=== PATIENT | male | born 1990 | race Caucasian/White ===

== ENCOUNTER 2016-07-10 19:37 | Inpatient (IN) | payer OTHER ==
[~2016-07-10] VITALS: Ht 182.9 cm; Wt 72.8 kg
[2016-07-10 19:50] VITALS: BP 154/86
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
[2016-07-10 21:35] VITALS: BP 154/86
[2016-07-10] MEDS ORDERED: ZOFRAN ODT4 M1 PO (22:21)
[2016-07-10] MEDS ORDERED: METHOCARBAMOL500 M1 PO (22:23)
[2016-07-10] MEDS ORDERED: ATIVAN1 M1 PO (22:24)
[2016-07-10] MEDS ORDERED: LORAZEPAM1 M1 PO (22:25)
[2016-07-10] MEDS ORDERED: IBUPROFEN600 M1 PO (22:26)
[2016-07-10] MEDS ORDERED: SLEEP AID50 MG PO (22:27)
[2016-07-10] MEDS ORDERED: OXYCODONE-ACET1 EACH PO (22:37)
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
[2016-07-10 23:56] VITALS: BP 127/73
--- NOTE | 2016-07-11 05:12 | Admission Certification ---
Admission Certification Certification Statement - As attending physician, I certify that at the time of - admission, based on clinical presentation, severity of - symptoms, need for further diagnostic testing and - therapeutic interventions, and risk of adverse outcomes - without in-hospital treatment, in my clinical assessment, - this patient requires an acute hospital stay for a minimum - of two nights or longer. I have also considered psychsocial - factors such as support system, advanced age, financial - issues, cognitive issues, and failed out-patient treatments, - past re-admission history, safety of patient, and lack of - compliance as applicable. Specific rationale supporting this admission is: Depression and suicidal ideation
--- NOTE | 2016-07-11 06:42 | NUR ---
DIANEYLS SLEPT AROUND 3 HOURS TOTAL DURING THE NIGHT, IN STAGES; HE WAS GIVEN 2MG ATIVAN ONE TIME PER DR. HUMHPREYS ALONG WITH HIS SCHEDULED HS MEDICATIONS AND PRN BENADRYL; POOR EFFECTIVENESS; HE LAY AWAKE IN BED READING A GREAT DEAL; CALM, COOPERATIVE WITH STAFF.
[2016-07-11 08:19] VITALS: BP 129/72
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
[2016-07-11 12:23] VITALS: BP 140/77
[2016-07-11 15:54] VITALS: BP 141/76
--- NOTE | 2016-07-11 16:14 | SOCIAL WORKER PROG NOTE PSYCH ---
Social Work Progress Note Progress Note Patient had family meeting today with this sign writer hand, Sharon Saira LEIJAN, his mother, father, sister and brother. Patients mother and sister were the only ones who shared openly during the meeting. Patients sister sufferred a stroke and has limited ability with communication skills. Patients mother shared a lengthy history of medication trials. Patient has tried multiple medications and has had negative experiences on most. Patient is very resistent to medication and mother is resistent to most medications as well. Patients father is diagnosed bipolar and on Zyprexa and Gonzalez currently. Patients mother is adamant that she does not want patient on either medication. Patients mother shared that patients PCP also disagrees with lithium trial and wanted his Ativan increased. Sharon expressed our concerns for increasing Ativan due to the depressing effect it has on central nervous system. Patient expressed his desire to be discharged soon from the hospital and mentioned briefly signing paperwork for discharge. Patient then refused to have his parents come back in for visiting. We shared that patient is open to signing paperwork for discharge if he would like to but also explained briefly the process that he would have to go through with sail finisher machine. I left voicemail for his therapist Sheree Wright ext [phone]) who patient has been working with for 12 years.
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
--- NOTE | 2016-07-11 16:43 | IP INCIDENTAL NOTE PSYCH ---
Incidental Note Notation: Labs from [facility] on 07/10/16 at 01:55: WBC 5.4 RBC 4.63 Hgb 14.0 Hct 42.7 MCV 92.2 MCH 30.2 MCHC 32.8 RDW 40.4 Plt 254 MPV 10.9 Neut % (auto) 57.5 Lymph % (auto) 31.9 Otero % (auto) 7.0 Eos % (auto) 3.0 Baso % (auto) 0.6 Sodium 145 Potassium 3.4 Chloride 106 Carbon Dioxide 24.0 Anion Gap 15 BUN 6.0 Creatinine 0.7 Estimated GFR > 60 Random Glucose 98 Calculated Osmolality 304.3 Calcium 8.8 Urine Opiates NEG Urin Barbiturates NEG Urine Phencyclidine NEG Urine Amphetamines NEG Urine Benzodiazepines NEG Urine Cocaine Metabolite NEG Ethyl Alcohol 156
--- NOTE | 2016-07-11 16:56 | IP INCIDENTAL NOTE PSYCH ---
Incidental Note Notation: SOLOMON obtained to speak with patient's PCP (Dr. Carrasco), his outpatient prescriber, for collateral information. Message was left with Dr. Carrasco's front office associate (#[phone]), requesting a return call. Patient refused to sign SOLOMON for [facility].
--- NOTE | 2016-07-11 18:07 | IP INCIDENTAL NOTE PSYCH ---
Incidental Note Notation: A family meeting was held with the patient, his mother and father, sister and brother. The patient's reason for admission, level of safety, treatment progress , and medication recommendations were reviewed and discussed. Patient's mother, and his sister who suffered a stroke, were the only two who shared during family meeting. The patient and patient's mother expressed the patient's previous failed trials on the following medications: Lexapro ("didn't work") Depakote ("became violent/agressive on it") Risperdal ("became agressive/depressed on it") Abilify ("heard voices on it") Zoloft ("was on it for 8 years, and did nothing") Prozac ("became violent/agressive on it") Zyprexa ("became agressive on it") Seroquel ("became violent/depressed on it") Lunesta (for sleep - "made me feel funny, didn't work") Reviewed this technical document writer's recommendation for patient to trial Mascotte, given that current hospitalization resulted in the patient's 5th suicide attempt s/p hanging self, and Masc[place]'s anti-suicidal properties, and efficacy on treating depression and mood stabilization. The patient's mother was strongly against this recommendation, as was the patient, given the patient's father who has a long history of being on medication (and currently still is), and has experienced many SEs on medication. The patient's father did not discuss his history of mental illness, nor did the patient's mother delve into this history, except that he is diagnosed with Bipolar disorder. The patient's father is additionally taking Zyprexa, and the patient's mother and patient were against the patient retrialing this medication as the patient had failed this trial in the past. 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 The patient appeared to exhibit limited insight into most recent suicide attempt resulting in this hopsitalization and necessity to stabilize psychiatric symptoms. Swapna Manuel LCSW and this technical document writer reviewed concerns surrounding present hospitalization, and patient's resistance to trialing psychotropic medications for mood stabilization. 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 Per patient's mother, she spoke with patient's PCP Dr. Carrasco prior to family meeting who expressed (per the patient's mother) that the patient has done well on Ativan 2mg at HS, and believes that his depression would improve if Ativan was increased. 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 Additionally reviewed the patient's concomittant use of alcohol and benzodiazepines and the risks of physical and mental effects. The patient is unwilling to discontinue Ativan 2mg at HS. This technical document writer attempted to call Dr. Carrasco (PCP) and was unsuccessful. A message was left with the air defense artillery officer of Dr. Carrasco, to return call for further collateral on the patient. The patient refused to sign SOLOMON for this technical document writer to obtain prior health records from [facility]. During the conclusion of family meeting, the patient continued to refused psychotropic medication trials, and expressed that he felt his family sided with treatment team. He refused his family from further visitation while he is hospitalized. Probable cause form was reviewed with the patient, given he is currently maintained on PEC. He was offered to sign form, and chose not to at that time. He was informed that if he should change his mind, to notify nursing to sign paperwork.
[2016-07-11 19:54] VITALS: BP 136/79
--- NOTE | 2016-07-11 21:22 | NUR ---
PT HAS BEEN COMPLIANT WITH UNIT RULES, COOPERATIVE WITH THE MOST PART WITH STAFF AND PEERS, AND RELATIVELY CALM. PT HAD ONE INCIDENT WITH STAFF WHEN ASKED TO LEAVE DOOR OPEN AT NIGHT TO REMAIN VISIBLE FOR HIS SAFETY, AND VOICED HOW HE DID NOT WANT THIS TO OCCUR, BUT WAS SUBSEQUENTLY RE-DRECTED FROM THIS BEHAVIOR. PT MOOD IS STABLE, AFFECT IS CONSTRICTED AT TIMES, AND OVERALL SLIGHTLY EUTHYMIC, THOUGH HAS ABILITY TO EXPRESS FULL RANGE. PT IS SOCIAL, THOUGH SEEMS ANXIOUS WHEN AROUND OTHERS AND IN CONVERSTAION. PT APPETITE NORMAL AND COMMUNICATION NORMAL. PRT HAS NO MAJOR COMPLAINTS AT THIS TIME AND DENIES SI.
--- NOTE | 2016-07-11 23:08 | NUR ---
Patient approach nurses station and expected to confirm medication dosing for the night and reported that staff needed to call the online content editor doctor if the order was incorrect for night time Ativan of 2mg. This nurse reported the dosing of 1 mg and and the patient reports "that is not what was discussed today." The patient's mother called and was very upset with this nurse and staff for not giving her son the correct amount of Ativan. I explained the dosing and alteration made to help the patient sleep, to the mother and she was unhappy still. The patient's mother requested the number to the patient advocate and extension to the "lowly" LEGAL ENTITY CONTROLLER, and used profanity toward staff and care being provided. Patient is also upset with sitter rules and unhappy with all limits set. Mother demanded that "retribution" not be taken out on her son. This nurse assured the mother exceptional care will continue to be provided to her son and all patients under our professional care. Patient mother was given patient advocate phone number as requested.
--- NOTE | 2016-07-12 04:27 | NUR ---
PT SLEPT WELL, NO ISSUES. 1:1 SITTER MAINTAINED THROUGHOUT THE NIGHT FOR SAFETY.
[2016-07-12 08:17] VITALS: BP 108/66
[2016-07-12 12:08] VITALS: BP 134/79
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
--- NOTE | 2016-07-12 13:30 | NUR ---
PT IS COMPLIANT AND COOPERATIVE. MOOD IS STABLE WITH A FLAT AFFECT. PT DENIES SI AT THIS TIME, NO COMPLAINTS OFFERED. PT IS ISOLATIVE AND WITHDRAWN IN ROOM, SLEEPING MOST OF DAY. PT HAS MINIMAL INTERACTION WITH OTHERS. PT PRESENT ON UNIT FOR VITALS- HAS REFUSED MEALS AT THIS POINT. VITALS ARE STABLE.
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
[2016-07-12 15:56] VITALS: BP 131/78
[2016-07-12 17:51] VITALS: BP 142/79
[2016-07-12 20:02] VITALS: BP 152/76
[2016-07-12 20:05] VITALS: BP 152/76
--- NOTE | 2016-07-12 21:50 | NUR ---
PT IS VISIBLE ON UNIT, VISITING WITH MOTHER AND SISTER. BESIDES HIS VISITORS, PT DOES NOT INTERACT MUCH WITH PEERS OR STAFF. PT DID ATTEND WRAP UP MEETING AND PARTICIPATED. COOPERATIVE AND COMPLAINT WITH STAFF. NO COMPLAINTS OR SI REPORTED. PT HAS A STABLE MOOD AND EUTHYMIC AFFECT.
[2016-07-13] VITALS (8 sets, daily range): BP systolic 102–131; BP diastolic 65–68
--- NOTE | 2016-07-13 11:16 | NUR ---
PT STATED HE FELT A LITTLE TIRED TODAY BUT NO SUICIDAL THOUGHTS OR THOUGHTS OF SELF HARM. HE IS COOPERATIVE WITH STAFF AND UNIT ROUTINE. HIS AFFECT IS FULL RANGE AND BEHAVIOR IS APPROPRIATE AND CALM
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
--- NOTE | 2016-07-13 17:50 | NUR ---
PT IS COMPLIANT AND COOPERATIVE. MOOD IS STABL WITH A CONSTRICTED AFFECT. PT DENIES SI AT THIS TIME, NO COMPLAINTS OFFERED. PT TENDS TO BE ISOLATIVE AND WITHDRAWN IN BED. PT INTERACTING WITH PEERS AND STAFF WHEN PRESENT IN COMMUNITY. NO S/S OF DETOX NOTED OR REPORTED, NO SCORING ON CIWA. VITALS ARE STABLE, APPETITE IS GOOD.
[2016-07-14] VITALS (8 sets, daily range): BP systolic 113–144; BP diastolic 60–76
--- NOTE | 2016-07-14 06:34 | NUR ---
PATIENT SLEPT ALL NIGHT, BUT DID APPEAR AWAKE IN BED A COUPLE OF TIMES; NO ISSUES OR CONCERNS.
--- NOTE | 2016-07-14 10:48 | CP SOUTH PROGRESS NOTE PSYCH ---
Psych (Inpt) Progress Note Progress Note Include the following elements, when applicable: Involvement in the active treatment of the patient with behavioral observations of the patient and the patient's response to the treatment. Review of the ongoing treatment process in the context of the treatment plan. Indication of how multi-disciplinary staff members are carrying out the treatment plan. Plans for future interventions and recommendations for revision of the treatment plan. Liaison with other physicians/providers. Progress Note: Less drowsy today; stated that he has been reading, able to focus on reading; stated that since the concussion he has been sleeping more than usual; but otherwise no complaints. Going to group this morning. Looking forward to recording to music, going back to work, and to feeling more like himself and more clear in the next few days. No other issues. MSE: young man, well related, well groomed. No psychomotor agitation or slowing noted. Eye contact is adequte. No movement d/o noted. Speech wnl. Mood euthymic and affect is full, smiling appropriately. Thought process linear. No noted thought content abnormalities. No evidence SI/HI. Not internally preoccupied and no evidence hallucinations. Insight fair, judgment adequate. A: 25 y.o man s/p suicide attempt by hanging. Mood improving; future oriented and has goals for after discharge. Risk of harm to self improving as clinical improvement continues; target dynamic risk factor of depression and etoh use with medication, education, family support, groups. Plan: Continue current plan of care. Does not appear sedated w/ remeron today.
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
--- NOTE | 2016-07-14 20:47 | NUR ---
Pt is bed during change of shift affect is constricted and little isolative. Pt came for 1999 vital signs, pt vital signs are stable c/o no pain. Pt appetite is good. Will continue to monitor the pt overnight.
--- NOTE | 2016-07-14 21:47 | NUR ---
PT REQUESTED TO TAKE 2100 ATIVAN AT LATER TIME.
[2016-07-15] VITALS (8 sets, daily range): BP systolic 107–145; BP diastolic 55–80
--- NOTE | 2016-07-15 12:13 | CP SOUTH PROGRESS NOTE PSYCH ---
Psych (Inpt) Progress Note Progress Note Include the following elements, when applicable: Involvement in the active treatment of the patient with behavioral observations of the patient and the patient's response to the treatment. Review of the ongoing treatment process in the context of the treatment plan. Indication of how multi-disciplinary staff members are carrying out the treatment plan. Plans for future interventions and recommendations for revision of the treatment plan. Liaison with other physicians/providers. Progress Note: [I discussed this patient's progress to date, current mental status, treatment process in the context of the treatment plan, and discharge planning with staff/ team in the daily morning inpatient team meeting. I also met with the patient myself in individual session.] SUBJECTIVE: "My moods fluctuate." OBJECTIVE: Current Medications Sig/Agusto Start time Last Medication Dose Route Stop Time Status Admin Carbamazepine 200 MG 0800 07/16 0800 AC PO Carbamazepine 200 MG 07/15 2200 AC PO Carbamazepine 200 MG ONCE ONE 07/15 1245 DC 07/15 PO 07/15 1246 1434 Diphenhydramine HCl 50 MG .STK-MED ONE 07/14 2153 DC PO 07/14 2154 Diphenhydramine HCl 50 MG Q6-PRN PRN 07/12 1500 AC 07/14 PO 2158 Gabapentin 300 MG TID 07/10 2301 AC 07/15 PO 0859 Ibuprofen 400 MG 4 TIMES/DAY PRN 07/15 1236 AC PO Ibuprofen 400 MG 4 TIMES/DAY 07/11 1000 DC 07/15 PO 0859 Lorazepam 0.25 MG 0800,1400 07/15 0800 DC 07/15 PO 07/15 1401 1436 Lorazepam 1 MG 2100 07/12 2100 AC 07/14 PO 2156 Lorazepam 2 MG Q2 HRS NEEDED PRN 07/12 1700 AC PO Lorazepam 1 MG Q2 HRS NEEDED PRN 07/12 1700 AC PO Methocarbamol 500 MG BID 07/10 2251 AC 07/15 PO 0859 Mirtazapine 7.5 MG 07/12 2200 AC 07/14 PO 2156 Promethazine HCl 25 MG Q4P PRN 07/10 2300 DC PO 07/17 2259 Vital Signs Date Time Temp Pulse Resp B/P Pulse O2 O2 Flow FiO2 Ox Delivery Rate 07/15 0753 97.8 62 107/55 07/15 0744 97.8 62 107/55 07/14 1950 97.5 84 137/73 07/14 1946 97.5 84 137/73 07/14 1606 92 144/76 07/14 1558 92 144/76 07/14 1218 80 139/74 ASSESSMENT: Chart reviewed. Patient signed 3-day paper today. Met with the patient today, who was A&Ox4. Speech was slightly pressured at times. Affect full-range. Mood euthymic. Eye contact was appropriate. Behavior was calm and cooperative. He reported having "good" visits with his fater, mother and sister over the weekend. He reported the intensity of his depression fluctuates and varies. He would not elaborate on this. He denied feeling hopeless, helpless, and worthless. He reported anxiety of 0/10 (10 being the worst). He denied active and passive suicidal ideation, plans and intent. He denied homicidal ideation. There was no evidence of psychotic process, delusions or paranoia. He denied AH and VH. Thought process was organized and linear. Thought content was appropriate. Reviewed at length the risk/benefit/SE profiles of Tegretol, including unusual bleeding/bruising, agranulocytosis, aplastic anemia, rash/SJS, and sedation. Reviewed with the patient that Tegretol requires necessary serum blood monitoring. Patient was agreeable to serum blood monitoring and verbalized understanding of education, and agreeble to trial for mood stabilization. PLAN: 1. Start Tegretol 200mg BID for mood stabilization. CBZ level scheduled on at 0600. 2. Continue current medication regimen. 3. Monitor the patient on unit for mood, suicidal ideation, and safety. 4. Dispo planning per primary team.
--- NOTE | 2016-07-15 13:30 | NUR ---
PT IS COMPLIANT AND COOPERATIVE. PT IS OUT IN COMMUNITY INTERACTING WELL WITH STAFF AND PEERS. PT IS ACTIVE IN GROUPS. PT MOOD IS STABLE WITH A FULL RANGE AFFECT. PT IS LOOKING FORWARD TO PLAYING HIS MUSIC LATER. PT DENIES SI
--- NOTE | 2016-07-15 13:54 | SOCIAL WORKER PROG NOTE PSYCH ---
Social Work Progress Note Progress Note Patient presented with brighter mood today and affect was congruent with mood. Patient reported having a good weekend. He reported having visitors throughout the weekend, playing music, reading a book and engaging with his peers. Patient did put in a 3 day paper today and reported that he needs to leave by Friday due to work obligations. Patient has been more open to med changes and agreed to start a mood stabilizer today. I have left 2 voicemails now for patients outpatient therapist, Sheree Wright, and waiting for call back to discuss discharge planning. Patient denies SI/HI/AH/VH at present and is forward thinking talking about upcoming shows that he is looking forward to.
--- NOTE | 2016-07-15 22:14 | NUR ---
PT IS VISIBLE ON UNIT BUT HAS MINIMAL INTERACTION WITH PEERS AND STAFF. PT MOSTLY STAYS TO HIMSELF. FAMILY GAME TO VISIT THROUGHOUT THE EVENING. ATTENDED WRAP UP MEETING AND PARTICIPATED. NO COMPLAINTS OR SI REPORTED. PT HAS A STABLE MOOD AND FULL RANGE AFFECT.
[2016-07-16] VITALS (7 sets, daily range): BP systolic 116–142; BP diastolic 66–79
--- NOTE | 2016-07-16 10:51 | CP SOUTH PROGRESS NOTE PSYCH ---
Psych (Inpt) Progress Note Progress Note Include the following elements, when applicable: Involvement in the active treatment of the patient with behavioral observations of the patient and the patient's response to the treatment. Review of the ongoing treatment process in the context of the treatment plan. Indication of how multi-disciplinary staff members are carrying out the treatment plan. Plans for future interventions and recommendations for revision of the treatment plan. Liaison with other physicians/providers. Progress Note: [I discussed this patient's progress to date, current mental status, treatment process in the context of the treatment plan, and discharge planning with staff/ team in the daily morning inpatient team meeting. I also met with the patient myself in individual session.] SUBJECTIVE: "I'm ok, just a little tired." OBJECTIVE: Current Medications Sig/Agusto Start time Last Medication Dose Route Stop Time Status Admin Carbamazepine 200 MG 0800 07/16 0800 AC 07/16 PO 0955 Carbamazepine 200 MG 22007/15 2200 AC 07/15 PO 2150 Diphenhydramine HCl 50 MG .STK-MED ONE 07/15 214 DC PO 07/15 2147 Diphenhydramine HCl 50 MG Q6-PRN PRN 07/12 1500 AC 07/15 PO 2151 Gabapentin 300 MG TIDPRN PRN 07/16 1424 AC PO Gabapentin 300 MG TID 07/10 2301 DC 07/16 PO 0955 Ibuprofen 400 MG 4 TIMES/DAY PRN 07/15 1236 AC 07/16 PO 1552 Lorazepam 1 MG .STK-MED ONE 07/15 2145 DC PO 07/15 214 Lorazepam 1 MG 2100 07/12 2100 AC 07/15 PO 2150 Lorazepam 2 MG Q2 HRS NEEDED PRN 07/12 1700 AC PO Lorazepam 1 MG Q2 HRS NEEDED PRN 07/12 1700 AC PO Methocarbamol 500 MG BID 07/10 2251 AC 07/16 PO 0955 Mirtazapine 7.5 MG 22007/12 2200 AC 07/15 PO 2150 Vital Signs Date Time Temp Pulse Resp B/P Pulse O2 O2 Flow FiO2 Ox Delivery Rate 07/16 1223 88 142/66 07/16 1210 88 142/66 07/16 0740 97.3 77 116/70 07/16 0740 97.3 77 116/70 07/15 1953 97.4 92 145/80 07/15 1950 97.4 92 145/80 07/15 1556 80 140/73 07/15 1549 80 140/73 ASSESSMENT: Met with patient today, who was observed resting in bed and reading. Speech was normal in rate, tone and volume. Presented A&Ox4. He reported feeling tired today, and attributed this to new trial of Tegretol. Reviewed that this can be a temporary SE of medication. He reported attending some groups today. Reported appetite was good, and sleep was fair overall, with some difficulty initially falling asleep. Reported staying asleep. He reported mood as "ok, just a little tired." He denied feeling hopeless, helpless, and worthless. Affect was full- range, non-labile. Thought process was linear and organized. Thought content was appropriate. He denied passive and active suicidal ideation, plans and intent. He denied homicidal ideation. There was no evidence of underlying psychotic process, paranoia or delusions. He denied AH and VH. Patient reported tolerating medications well overall and denied acute untoward effects. Will continue to monitor patient's response to Tegretol, if daytime tiredness continues, will consider decreasing AM dose of Tegretol from 200mg to 100mg. Discussed with patient and recommended reducing HS Ativan dose from 1mg to 0.5mg. Patient refused recommendation, and expressed concern that if Ativan is decreased that he will not be able to sleep. Will continue to monitor patient 's sleep pattern, and revisit recommendation tomorrow. Reviewed with patient discharge recommendation to f/u with IOP for continued management of psychiatric symptoms and medications post-discharge. Patient refused IOP recommendation and expressed limited insight as to the need for IOP level of care following discharge. Family meeting with patient's mother is scheduled for tomorrow at 1PM to discuss discharge planning and IOP recommendation. PLAN: 1. Continue monitoring the patient on unit for safety, suicidal ideation and mood. 2. Continue current medications. 3. Family meeting scheduled for tomorrow at 1PM with patient's mother. 4. Dispo planning per primary team. PLAN: 1. Continue monitoring the patient on unit for safety, suicidal ideation and mood. 2. Continue current medications. 3. Family meeting scheduled for tomorrow at 1PM with patient's mother. 4. Dispo planning per primary team.
--- NOTE | 2016-07-16 13:26 | NUR ---
PT IS OUT IN COMMUNITY INTERACTING WELL WITH STAFF AND PEERS. PT MOOD IS STABLE WITH A FULL RANGE AFFECT. PT IT ATTEND GROUPS. PT IS SOICAL WITH OTHER PEERS AND WITH STAFF. PT IS COMPLIANT AND COOERPATIVE. PT DENIES SI THOUGHTS
--- NOTE | 2016-07-16 13:54 | NUR ---
is going to groups and interacts minimally with peers and staff. mood is stable full range of affect. denied thoughts of self harm when asked.
--- NOTE | 2016-07-16 15:36 | SOCIAL WORKER PROG NOTE PSYCH ---
Social Work Progress Note Progress Note Met with patient this afternoon who reported feeling somewhat tired from new medication and feeling "off and on" depressed. Patient denied any active SI and was asking about discharge. Patient continues to be resistent to IOP recommendation and expresses concern about returning to work and finances. Patient expressed some concerns regarding new mood stabalizer he was started on and had many questions regarding the benfit of this type of medication. Together we discussed what type of symptoms the mood stabalizer would target such as, racing thoughts, impulsivity and the highs and lows he was previously experiencing. 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 Together we discussed the consequences that can occur if he is to continue to experience these mood fluctuations and the risk outweighs the benefits. Patient understood. I have made calls today to his OP therapist Sheree Wright and Kelle Canchola. Both clinicians are in support of IOP and Kelle is planning to speak to patients mother this evening to advocate for IOP for patient. Sharon and I are planning to meet with patients mother tomorrow @ 1pm to start discharge process.
--- NOTE | 2016-07-16 22:17 | NUR ---
PT IS STABLE WITH FULL RANGE OF AFFECT. PRESENT WITHIN THE COMMUNITY AND INTERACTING WITH PEERS/STAFF. 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 PT IS HYPERVERBAL AT THE MOMENT AND WAS ENJOYING A CONVERSATION ABOUT MUSIC WITH AN RN. PT ATTENDED WRAP UP AND VS ARE STABLE. DENIES ANY SI/HI TO THIS MHW.
[2016-07-17 08:09] VITALS: BP 117/68
[2016-07-17 08:11] VITALS: BP 117/68
[2016-07-17 12:28] VITALS: BP 138/75
--- NOTE | 2016-07-17 14:13 | NUR ---
Pt reported feeling groggy this morning when woken up for vitals. He got up for vitals but did not attend breakfast, or both planning meeting, focus group. he had a family meeting which appeared to have gone okay. Pt currently is attending afternoon group, and had lunch with his peers. pt denies thoughts of hurting himself, and thoughts of suicide.
--- NOTE | 2016-07-17 14:18 | CP SOUTH PROGRESS NOTE PSYCH ---
Psych (Inpt) Progress Note Progress Note Include the following elements, when applicable: Involvement in the active treatment of the patient with behavioral observations of the patient and the patient's response to the treatment. Review of the ongoing treatment process in the context of the treatment plan. Indication of how multi-disciplinary staff members are carrying out the treatment plan. Plans for future interventions and recommendations for revision of the treatment plan. Liaison with other physicians/providers. Progress Note: [I discussed this patient's progress to date, current mental status, treatment process in the context of the treatment plan, and discharge planning with staff/ team in the daily morning inpatient team meeting. I also met with the patient myself in individual session with Swapna Manuel. [facility].] SUBJECTIVE: "I'm okay, still getting use to the new med. Just tired." OBJECTIVE: Current Medications Sig/Agusto Start time Last Medication Dose Route Stop Time Status Admin Carbamazepine 100 MG 0800 07/18 0800 AC PO Carbamazepine 200 MG 0800 07/16 0800 DC 07/17 PO 1214 Carbamazepine 200 MG 07/15 220 AC 07/16 PO 2144 Diphenhydramine HCl 50 MG .STK-MED ONE 07/16 2141 DC PO 07/16 2142 Diphenhydramine HCl 50 MG Q6-PRN PRN 07/12 1500 AC 07/16 PO 2146 Gabapentin 300 MG TIDPRN PRN 07/16 1424 AC PO Gabapentin 300 MG TID 07/10 2301 DC 07/16 PO 0955 Ibuprofen 400 MG 4 TIMES/DAY PRN 07/15 1236 AC 07/16 PO 1552 Lorazepam 1 MG 2100 07/12 2100 AC 07/16 PO 2145 Lorazepam 2 MG Q2 HRS NEEDED PRN 07/12 1700 DC PO Lorazepam 1 MG Q2 HRS NEEDED PRN 07/12 1700 DC PO Methocarbamol 500 MG BID 07/10 2251 AC 07/17 PO 1214 Mirtazapine 7.5 MG 2200 07/12 220 AC 07/16 PO 2144 Vital Signs Date Time Temp Pulse Resp B/P Pulse O2 O2 Flow FiO2 Ox Delivery Rate 07/17 1228 91 138/75 07/17 0811 96.1 75 117/68 07/17 0809 96.1 75 117/68 07/16 1941 97.0 96 136/69 07/16 1938 97.0 96 136/69 07/16 1630 85 135/79 07/16 1605 85 135/79 ASSESSMENT: Met with the patient today, together with Swapna Manuel LCSW, and the patient's mother for a 2nd family meeting. On encounter, patient reported continued daytime tiredness on Tegretol. He reported his sleep was improved. Speech was normal in rate, tone and volume. Eye contact was appropriate. Affect was full-range. Mood was "okay." Denied depression and anxiety. Denied racing thoughts. Reported apettite was good. Denied active and suicidal ideation, plans and intent. Denied feeling hopeless, helpless, guilty, and worthless. He denied homicidal ideation. 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 Thought content was appropriate. There was no evidence of psychosis, delusions, paranoia. He denied AH and VH. He reported tolerating medications well overall, but reported continued day time tiredness on Tegretol 200mg QAM. Reviewed with patient Tegretol 200mg can be decreased to 100mg QAM, and could be managed by outpatient prescriber post- discharge from [facility]. He denied acute untoward medication effects, and was agreeable to continue taking them. There was no evidence of rash/SJS. During family meeting with the patient, his mother, and Swapna Manuel LCSW, the patient's mother appeared upset that patient's Ativan was reduced to 1mg at HS, which the patient had agreed to. She reported the patient would not be able to sleep once discharged from hospital on 1mg Ativan at HS. This staff writer asked the patient how he felt his sleep pattern was since reducing HS Ativan from 2mg to 1mg at HS, and tapering off of Ativan 1mg BID. Patient reported sleeping "good. " Patient's mother remained skeptical when patient replied this. She additionally expressed concern regarding the patient's day time energy level on Tegretol 200mg BID. She reported she did not like seeing the patient appear tired. Patient was A&Ox4, and reported some day time tiredness on 200mg Tegretol QAM. On the unit, the patient's level of functioning did not seem impaired as evidenced by postive group attendance/participation, completing ADLs independently, stable and steady gait, socializing with peers, eating all meals. Reviewed with the patient that this could be reduced to 100mg QAM, to see if tiredness improved. This staff writer and Swapna Manuel LCSW reviewed at length with the patient and his mother the treatment recommendation for him to f/u with IOP level of care post- discharge. The patient's mother advocated for patient to resume outpatient level of care with a prescriber and his outpatient therapist. She refused, as did the patient to follow-up with treatment recommendation for IOP level of care post- discharge, as both parties felt it was not appropriate to the patient's psychiatric needs or work schedule. Swapna Manuel LCSW and this staff writer reviewed the reasons why IOP treatment recommendation was made: 1) This was patient's 5th suicide attempt (and was a lethal attempt by hanging), and 3rd inpatient psychiatric hospitalization, 2) outpatient therapy and medication management, which the patient was engaged in prior to this hospitalization, resulted in this inpatient hospitalization, 3) continued need for psychiatric symptoms and medication monitoring, and need for increased level of psychiatric support following inpatient psychiatric hospitalization. The patient and the patient's mother verbalized understanding of this, however disagreed with recommendation, and reasons for why he was hospitalized. Reviewed with the patient and his mother, that his PCP Dr. Carrasco (who had been prescribing his psychiatric meds prior to this hospitalization), and his two outpatient therapists were all in favor of the patient following up with IOP level of care post-discharge. The patient's mother and patient continued to refuse this treatment recommendation, for reasons not concerning present inpatient hospitalization (i.e.- work schedule, and mother would need to provide transportation for recommended services, and disagreement with treatment recommendation). The patient's mother verbalized that not following up with treatment recommendation could potentially lead to a relapse of patient's symptoms. The patient additionally verbalized understanding of this, and continued to refuse IOP recommendation. The patient and patient's mother verbalized understanding that in the event of an emergency post-discharge, to call [phone] to nearest emergency department. The patient was agreeable to follow-up with [facility] for medication management post-discharge and to resume outpatient therapy with his established individual therapist. Patient and patient's mother were in favor of this discharge plan. The patient's mother expressed no concerns regarding the patient's safety. PLAN: 1. Decrease Tegretol 200mg QAM to 100mg QAM d/t day time tiredness, starting tomorrow. Continue Tegretol 200mg at HS. CBZ level scheduled for tomorrow at 0600. 2. Continue current medications. 3. Continue monitoring the patient on unit for safety. 4. 3-day paper expires tomorrow. Patient to discharge tomorrow into the care of his mother with f/u at [facility] for med management and appointment with established individual therapist for weekly individual therapy.
--- NOTE | 2016-07-17 14:19 | SOCIAL WORKER PROG NOTE PSYCH ---
Social Work Progress Note Progress Note Patient had family meeting today to discuss discharge plan with this property underwriter, Sharon Chávez APRN, and patients mother. Patients mother offered no complaints or concerns regarding patient returning home tomorrow. Patient expressed his concerns with feeling sedated on Tegretol and Sharon Chávez APRN has agreed to lower dose tomorrow in AM from 200mg to 100mg to help with sedation. It was recommended patient continue on medication unless outpatient providers make adjustments. Patient and his mother continue to be resistant and refuse recommendation to IOP post discharge from the hospital. We explained thoroughly that IOP is our recommendation at this time and is the safest step down from this level of care. Mom is under the impression that he is able to return to his previous outpatient providers and stick with one on one therapy as he was doing previously. I have been in contact with both of his outpatient providers and both have stated that they are in agreement with patient to step down into IOP post discharge from the hospital. After the family meeting I left voicemail for both providers to see if they are willing to schedule him an appointment post discharge with the plan of him not attending IOP. I am waiting for call back from both. Mom expressed no concerns about him returning to one on one therapy and being seen by his old psychiatrist, Dr. Giles, who treated him psychiatrically in the past. I have made an appointment with OP as back up to Dr. Chan kellogg unable to schedule appointment within timely manner.
[2016-07-17 16:00] VITALS: BP 132/79
[2016-07-17 20:17] VITALS: BP 141/74
--- NOTE | 2016-07-17 23:20 | NUR ---
PT IS CALM, COOPERATIVE WITH STAFF AND PEERS, AND COMPLIANT WITH UNIT RULES. PT IHAS BEEN SPENDING MOST OF THE TIME IN [place], INTERACTING WITH OTHERS. PT MOOD IS STABLE, AFFECT IS FULL RANGE, COMMUNICATION IS NORMAL, AND APPETITE IS NORMAL,. PT DENIES SI AT THIS TIME.
--- NOTE | 2016-07-18 04:17 | NUR ---
Patient slept well, no issues.
--- NOTE | 2016-07-18 08:21 | NUR ---
PT IS SCHEDULED FOR D/C TO [facility] TODAY. HE REPORTS AND DEMONSTRATES A CALM AND APPROPRIATE MOOD AND BEHAVIOR. HE DENIES ANY THOUGHTS OF SUICIDE OR SELF HARM. HE VERBALIZES A GOOD UNDERSTANDING OF HIS MED REGIME AND TREATMENT PLAN. HE EXPECTS TO FOLLOW UP WITH OUT PT. PT IS GIVEN EDUCATION ON DEPRESSION AND SUICIDE PREVENTION
--- NOTE | 2016-07-18 08:23 | CP SOUTH PROGRESS NOTE PSYCH ---
See Addendum Psych (Inpt) Progress Note Progress Note Include the following elements, when applicable: Involvement in the active treatment of the patient with behavioral observations of the patient and the patient's response to the treatment. Review of the ongoing treatment process in the context of the treatment plan. Indication of how multi-disciplinary staff members are carrying out the treatment plan. Plans for future interventions and recommendations for revision of the treatment plan. Liaison with other physicians/providers. Progress Note: [I discussed this patient's progress to date, current mental status, treatment process in the context of the treatment plan, and discharge planning with staff/ team in the daily morning inpatient team meeting. I also met with the patient myself in individual session with Swapna Manuel. [facility].] SUBJECTIVE: "I feel good, happy to go home." OBJECTIVE: Lab Carbamazepine 7.2 ug/mL 07/18/16 0655 Current Medications Sig/Agusto Start time Last Medication Dose Route Stop Time Status Admin Carbamazepine 100 MG 07/18 0800 AC PO Carbamazepine 200 MG 07/16 0800 DC 07/17 PO 1214 Carbamazepine 200 MG 07/15 2200 AC 07/17 PO 2148 Diphenhydramine HCl 50 MG .STK-MED ONE 07/17 2143 DC PO 07/17 2144 Diphenhydramine HCl 50 MG Q6-PRN PRN 07/12 1500 AC 07/17 PO 2148 Gabapentin 300 MG TIDPRN PRN 07/16 1424 AC PO Ibuprofen 400 MG 4 TIMES/DAY PRN 07/15 1236 AC 07/16 PO 1552 Lorazepam 1 MG 2100 07/12 2100 AC 07/17 PO 2150 Methocarbamol 500 MG BID 07/10 2251 AC 07/17 PO 2148 Mirtazapine 7.5 MG 07/12 2200 AC 07/17 PO 2148 Vital Signs Date Time Temp Pulse Resp B/P Pulse O2 O2 Flow FiO2 Ox Delivery Rate 07/17 2016 97.8 99 141/74 07/17 1600 90 132/79 07/17 1228 91 138/75 ASSESSMENT: Met with the patient today, on the date of discharge. He presented alert and oriented to person, place, time and situation. Speech was normal in rate, tone and volume. Eye contact was appropriate. He had no complaints. He reported his mood as "good, I'm happy to go home." He reported depression of 0/10 (10 being the worst) and anxiety of 0/10 (10 being the worst). He denied active and passive suicidal ideation, plans and intent. He denied homicidal ideation. He denied feeling hopeless, helpless, and worthless. 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 OPS intake was scheduled for patient on at 2:30PM and medication intake on 07/24/[address] Quezada. Patient verbalized understanding of appointments. He denied auditory and visual hallucinations. There was no evidence of psychotic process, delusions or paranoia. He reported tolerating medications well, and denied untoward medication effects. Patient reported feeling safe and ready for discharge. PLAN: 1. Discharge today into the care of patient's mother, and to home with family. 2. F/u with [facility] on 07/23/16 at 2:30PM with Ann Michelle LCSW, and medication intake on 07/24/[address] Quezada. 3. All discharge prescriptions called into [facility] on [address] in [facility] ( #[phone]). 4. Patient and patient's mother to schedule outpatient individual appointment with Sheree Wright LCSW. 5. Abstain from all substances. 6. [id number] letter provided. 7. In the event of an emergency call /1/go to nearest emergency department. Patient verbalized understanding of instruction.
[2016-07-18 08:27] VITALS: BP 114/64
--- NOTE | 2016-07-18 10:50 | SOCIAL WORKER PROG NOTE PSYCH ---
Social Work Progress Note Progress Note Patient to discharge hopsital today. Patient denies SI/HI/AH/VH at present and is looking forward to returning home to families house today. Patient has been educated on the importance of following through with treatment post discharge from the hospital and consulting with outpatient psychiatrist regarding any medication concerns. Patient is aware and agrees. Patients primary therapist, Sheree Wright LCSW, and I have left multiple phone messages back and forth due to being unable to catch eachother at the same time. Jordon most recent message stated that she is in support of patient stepping down into IOP and at least he should complete IOP for a month or a DBT group in addition to individual therapy. She reports that upon her first meeting with patient, she will meet with him with Dr. Giles, patients previous outpatient psychiatrist. Together they will reasses patient and inform him of their recommendation at this time. I am waiting for call back to confirm when their first meeting with patient will be. Patient has been scheduled with OP for intake with Ann Michelle LCSW on 07/23/16 @2:30pm and first med appointment with Dr. Sanchez on 07/24/16 @1pm. Patient plans to cancel these intakes if he meets with Sheree/Dr. Giles before intake scheduled at .
[2016-07-18] MEDS ORDERED: CARBAMAZEPINE100 M2 PO (11:31)
[2016-07-18] MEDS ORDERED: LORAZEPAM1 M1 PO (11:34)
--- NOTE | 2016-07-18 11:45 | DISCHARGE SUMMARY REPORT-PSYCH ---
Visit Information Visit Dates/Diagnosis' Admission Date: 07/10/16 Discharge Date: 07/18/16 Reason for Admission: Suicide attempt via hanging Psy Discharge Primary Diag: Unspecified Bipolar Disorder Psy Discharge Secondary Diag: Alcohol use disorder, moderate; Asthma; Hx Concussion Hospital Course Significant Lab Findings: Lab Carbamazepine 7.2 ug/mL 07/18/16 0655 Course Complications: None. Consultations: The patient was seen for admission history and physical by Dr. Charlie Maciel. Please see MD note for additional information. Allergies: Coded Allergies: cefuroxime (Severe, ANAPHYLAXIS 07/10/16) chocolate flavor (Severe, ANAPHYLAXIS 07/10/16) aripiprazole (From [employer]) (AUDITORY HALLUCINATIONS/"VOICES" 07/10/16) Hospital Course/TX Response: The patient was monitored on the unit for safety, suicidal ideation, and mood disorder, following transfer to [facility] on a PEC from [facility] Emergency Department s/p attempt to hang himself while intoxicated on alcohol. He participated in multimodal treatments on the unit. He signed into [facility] voluntarily, and signed a termination of voluntary. He refused recommended trial of [place]. He was started on an Ativan taper, as he reported he had been taking 1mg Ativan up to three times a day, and 2mg of Ativan at bedtime. This was verified by patient's outpatient PCP prescriber Dr. Carrasco. Ativan was tapered down to 1mg at bedtime, which patient was agreeable to. He refused being taken off of Ativan completely, as he expressed concern that he wouldn't be able to sleep without it. Remeron 7.5mg was started at bedtime for depression/insomnia. Additionally, Tegretol 200mg twice a day was started for mood stabilization. Patient reported increased day time sedation on Tegretol 200mg every morning, which was decreased to 100mg every morning. Tegretol 200mg was maintained every night. Patient reported tolerating all medications well and denied acute untoward medication effects. During the course of hospitalization, patient's 1:1 sitter at night was discontinued for safety to self. His mood and affect improved. Suicidal ideation remitted. Two family meetings were held over the hospital course. The first, with the patient, his parents, his sister, his brother, Swapna Manuel LCSW, and this filing writer; and the second, with the patient, his mother, Swapna Manuel LCSW and this filing writer. During both family meetings, the patient's treatment progress, substance abuse, medication regimen, level of safety, and discharge planning were reviewed. During the first family meeting, the patient and his mother appeared to minimize the patient's psychiatric symptoms which led to his admission, and were initially resistant to recommended medication trials, and to inpatient treatment recommendation to follow-up with IOP level of care post- discharge. Between the first family meeting and second family meeting, the patient grew agreeable to trialing recommended medications for mood stabilization, depression and insomnia. Collateral was obtained between the two family meetings from PCP Dr. Carrasco and patient's outpatient therapist Sheree Wright LCSW. See this filing writer's and Swapna Manuel LCSW's progress notes for additional information on collateral. Both of these outpatient providers were in favor of the patient following up with IOP level of care post-discharge. During the second family meeting, this information was relayed to the patient and his mother. The patient and his mother continued to refuse for the patient to follow up with IOP level of care post-discharge. The patient's mother did not express any safety concerns having the patient return home and following up with traditional outpatient level of care. The patient and patient's mother verbalized understanding that in the event of an emergency post-discharge, to call [phone] to nearest emergency department. The patient's mother was agreeable to keep the patient's medications in her possession and assist with medication administration. The patient was also agreeable to this. Intake and medication appointments were scheduled at [facility] for the patient. On the date of discharge, 07/18/16, he was alert and oriented to person, place, time and situation. Speech was normal in rate, tone and volume. Eye contact was appropriate. He had no complaints. He reported his mood as "good, I'm happy to go home." He reported depression of 0/10 (10 being the worst) and anxiety of 0/ 10 (10 being the worst). He denied active and passive suicidal ideation, plans and intent. He denied homicidal ideation. He stated and also believed he will not harm himself or others. He denied feeling hopeless, helpless, worthless, and guilty. He identified protective factors including "my family," "my job," "my music," "I want to take an online master's program." He appeared motivated to follow-up with [facility] services for intake and medication management. OPS intake was scheduled for patient on 07/23/16 at 2:30PM and medication intake on at 1PM with Dr. Quezada. Patient verbalized understanding of appointments. He denied auditory and visual hallucinations. There was no evidence of psychotic process, delusions or paranoia. He reported tolerating medications well overall, and denied untoward medication effects. Patient reported feeling safe and ready for discharge. Discharge HBIPS - Tobacco Use Treatment Offered Post DC Medications Offered: NA-No Tob Use >30 days Post DC Tobacco Treatment Plan: NA-No Tobacco use >30days - EtOH/Drug Use D/O Treatment Offered Post DC Medications Offered: Ref Med EtOH/Drug Use D/O Post DC EtOH/SubAbuse TX Plan: Refused Post DC Tx Pgm Metabolic Screening - Screen if on a Neuroleptic Medication - Metabolic screening should include: - Blood Pressure, BMI, Glucose or Hgb A1c, & a - Lipid profile from within the past 365 days. Metabolic Screening ([X]) Not Applicable, patient not on a neuroleptic. OR () Patient on a neuroleptic(s) . Enter below results for Glucose or Hemoglobin A1C, and lipid panel if obtained during the last 365 days. BMI: 21.700 Blood Pressure: 142/85 Laboratory Results (If applicable): Discharge Instructions General Discharge Information Discharge Medications: Discharge Medications- (Dose, route, freq, indication): Tegretol 100mg tabs, take 1 tablet (100mg) po every morning and 2 tabs (200mg) every night for mood stabilization, #42, NR. Remeron 7.5mg tabs, take 1 tablet po at bedtime for depression/insomnia, #14, NR. Ativan 1mg tabs, take 1 tablet po at bedtime for anxiety/insomnia, #14, NR. Robaxin 500mg tabs, take 1 tablet po twice a day for mucle relaxant, #28, NR. [facility] [employer] was reviewed. All prescriptions were called into [facility] on [address] in [place], [place] (#[phone]), today. Multiple Neuroleptics: ([X]) Not Applicable OR Document below three failed attempts at monotherapy, or a plan to taper to monotherapy, or augmentation of Clozapine. () Patient's Diet: Regular. Patient's Activity: No restrictions. DC Disposition: Patient discharged into the care of his mother, and to return to home with family. Recommendations: The patient was advised to please take medications. He was advised to abstain from all substances. He was advised to follow-up with [facility] level of care post- discharge, however repeatedly refused recommendation. He was advised to follow- up with [facility] for intake, medication management, and serum Tegretol monitoring. Patient was advised that in the event of an emergency to call [phone]/go to nearest emergency department. Patient verbalized understanding of all instructions. Referred To: [facility] [address] [place] [address] *Intake scheduled on 07/23/16 at 2:30PM with Ann Michelle LCSW [address] [place] [address] (t) [phone] *Medication intake scheduled on 07/24/[address] Quezada. Sheree Wright LCSW/Dr. Giles *Please follow-up with Sheree Wright LCSW and Dr. Giles to schedule appointments. Copies To: [facility] OPS; RASHAD CARRASCO MD; Sheree Wright LCSW [facility]; RASHAD CARRASCO MD; Sheree Wright LCSW and Dr. Giles to schedule appointments. Copies To: [facility] OPS; RASHAD CARRASCO MD; Sheree Wright LCSW
[2016-07-18] MEDS ORDERED: ATIVAN1 M1 PO (11:54)
[2016-07-18 12:00] VITALS: BP 142/85
[2016-07-18] MEDS ORDERED: ROBAXIN500 M1 PO (12:15)
[2016-07-18] MEDS ORDERED: MIRTAZAPINE7.5 M1 PO (12:17)
--- NOTE | 2016-07-22 10:20 | IP INCIDENTAL NOTE PSYCH ---
Incidental Note Notation: Received an email from OPS, stating that the patient left a VM for OPS cancelling his intake and medication management appointments on 07/23/16 at 2: 30PM with Ann Michelle LCSW, and medication eval with Dr. Sanchez on 07/24/16 at 1PM d/t finding another provider. Dr. Farhat foley.
== END 2016-07-18 12:50 | DRG 885 ==
LOC: SDA 19:37 → CP SOUTH 19:46
PROVIDERS: ADMIT Psychiatry & Neurology Psychiatry
DX: F31.9 Bipolar disorder, unspecified (principal); F10.20 Alcohol dependence, uncomplicated; J45.909 Unspecified asthma, uncomplicated
CPT/HCPCS: 36415; J2405